=== PATIENT | female | born 1975 | race Caucasian/White ===

== ENCOUNTER 2017-07-28 20:01 | Emergency (ER) | payer OTHER ==
[2017-07-28 20:07] VITALS: BP 124/75; PULSE 78; TEMP 98.7; BMI 33.6
--- NOTE | 2017-07-28 20:08 | PDOC ---
Rapid Medical Evaluation Chief Complaint: Pain Medical Evaluation: Allergies Allergy/AdvReac Type Severity Reaction Status Date / Time No Known Allergies Allergy Verified 07/28/17 20:05 Vital Signs Temp Pulse Resp BP Pulse Ox 98.7 F 78 18 124/75 100 07/28/17 20:05 07/28/17 20:05 07/28/17 20:05 07/28/17 20:05 07/28/17 20:05 07/28/17 20:07 I have performed a brief in person evaluation of this patient. The patient presents with chief complaint of : lower abd pain radiates to her lower back, with painful bowel movement denies dysuria Pertinent PE findings: none I have ordered the following: urine preg, UA The patient will proceed to the ER for further evaluation. Discharge Disposition - Referrals Referrals: Sharon Fung [Primary Care Provider] - - Patient Instructions - Post Discharge Activity
[2017-07-28 21:00] LABS: URINE APPEARANCE SLCLOUDY; URINE BILIRUBIN NEGATIVE (NEGATIVE); URINE BLOOD NEGATIVE (NEGATIVE); URINE COLOR LTYELLOW; URINE GLUCOSE (UA) NEGATIVE (NEGATIVE); URINE KETONE NEGATIVE (NEGATIVE); URINE NITRITE NEGATIVE (NEGATIVE); URINE PROTEIN NEGATIVE (NEGATIVE); URINE UROBILINOGEN NEGATIVE mg/dL (0.2-1.0)
[2017-07-28 22:14] LABS: URINE LEUK ESTERASE Negative (NEGATIVE)
--- NOTE | 2017-07-28 22:35 | PDOC ---
History of Present Illness - General Chief Complaint: Pain Stated Complaint: PAIN Time Seen by Provider: 07/28/17 22:11 Past History - Past Medical History Allergies/Adverse Reactions: Allergies Allergy/AdvReac Type Severity Reaction Status Date / Time No Known Allergies Allergy Verified 07/28/17 20:05 Home Medications: Ambulatory Orders NK [No Known Home Medication] 07/28/17 COPD: No - Suicide/Smoking/Psychosocial Hx Smoking History: Never smoked *Physical Exam - Vital Signs Last Vital Signs Temp Pulse Resp BP Pulse Ox 98.7 F 78 18 124/75 100 07/28/17 20:05 07/28/17 20:05 07/28/17 20:05 07/28/17 20:05 07/28/17 20:05 ED Treatment Course - ADDITIONAL ORDERS Additional order review: Laboratory Results 07/28/17 20:20 Urine Color Ltyellow Urine Appearance Slcloudy Urine pH 5.0 Ur Specific [place] 1.024 Urine Protein Negative Urine Glucose (UA) Negative Urine Ketones Negative Urine Blood Negative Urine Nitrite Negative Urine Bilirubin Negative Urine Urobilinogen Negative Ur Leukocyte Esterase Negative Urine HCG, Qual Negative *DC/Admit/Observation/Transfer Diagnosis at time of Disposition: Eloped - Discharge Dispostion Disposition: ELOPED - Referrals Referrals: Sharon Fung [Primary Care Provider] - - Patient Instructions - Post Discharge Activity
== END 2017-07-28 23:29 | disposition left against medical advice (07) ==
LOC: JER 20:01
DX: R10.30 Lower abdominal pain, unspecified (principal)
CPT/HCPCS: 81003; 84703; 99282-25